=== PATIENT | female | born 1985 | race Hispanic/Latino ===

== ENCOUNTER → 2019-10-28 | Outpatient (REF) | payer OTHER ==
[2019-10-28 17:42] LABS: HEMOGLOBIN 12.3 g/dl (12.0-15.5)
== END ==
LOC: M SFHCLERA 13:47
PROVIDERS: ATTEND Family Medicine
DX: G47.00 Insomnia, unspecified (principal)
CPT/HCPCS: 84443; 85014; 85018; 90471; 90682; G0463

== ENCOUNTER → 2019-11-06 | Outpatient (CLI) | payer OTHER ==
--- NOTE | 2019-11-12 08:35 | SLEEPHOME ---
DATE OF STUDY: 11/06/2019 ORDERED BY: Dr. Serrato Diagnostic home sleep testing was performed due to concern for the obstructive sleep apnea syndrome in this patient with a history of snoring and disrupted sleep. For testing, a nocturnal T3 respiratory monitoring device was used. Continuous record was made of pulse, oxygen saturation, airflow, chest and abdominal strain and body position. 11 hours and 59 minutes of data were reviewed. There were only 4 hours and 33 minutes marked as time in bed. During the interval marked time in bed, there were 28 respiratory events identified of 10 seconds in duration or greater for a respiratory event index of 6.1. The events were primarily obstructive, but more frequent in the supine posture. Baseline pulse rate was 74 beats per minute, pulse rate ranged 59-119. Baseline saturation 96%. Saturations did not fall below 90%. Testing was performed in both the supine and nonsupine positions. IMPRESSION: Abnormal home sleep testing with repetitive respiratory events and oxygen desaturations to 90% with a respiratory event index of 6.1 is suggestive of the obstructive sleep apnea syndrome. RECOMMENDATION: Given the occurrence of events primarily in the supine posture, sleep position retraining for avoidance of the supine posture would be reasonable. If sleep symptoms persist, consideration may wish to be given for a formal sleep evaluation. [facility]
== END ==
LOC: M SLEEP HO 12:42
PROVIDERS: ATTEND Family Medicine
DX: G47.00 Insomnia, unspecified (principal)

== ENCOUNTER 2020-08-16 15:07 | Emergency (ER) | payer OTHER ==
[~2020-08-16] VITALS: Ht 165.1 cm; Wt 72.2 kg
[2020-08-16] MEDS ORDERED: IBUP-1022 PO (15:16)
[2020-08-16] MEDS ORDERED: IBUPROFEN 600MG TAB PO ONE (15:45)
--- NOTE | 2020-08-16 16:25 | REP ---
INDICATION: fall. COMPARISON: None. TECHNIQUE: Five views including PA chest. FINDINGS: PA chest radiograph is normal. There is no evidence of pneumothorax or hydrothorax. Mediastinum is not widened. Heart size is normal. No infiltrate is seen. Multiple views of the right rib cage show no visible right rib fracture or bony destructive lesion. IMPRESSION: Negative right rib series. No fracture seen. <Electronically signed by De Sears > 08/16/20 [id number]
[2020-08-16 16:55] VITALS: BP 130/58
== END 2020-08-16 17:08 | disposition home or self-care (01) ==
LOC: M ED 15:07
DX: S23.3XXA Sprain of ligaments of thoracic spine, initial encounter (principal); W01.198A Fall on same level from slipping, tripping and stumbling with subsequent striking against other object, initial encounter; Y92.89 Other specified places as the place of occurrence of the external cause; Y93.89 Activity, other specified; Y99.8 Other external cause status